=== PATIENT | female | born 1995 | race Caucasian/White ===

== ENCOUNTER 2016-11-15 19:26 | Emergency (ER) | payer OTHER ==
[~2016-11-15] VITALS: Ht 157.5 cm; Wt 70.0 kg
[2016-11-15 19:58] LABS: BASOPHIL COUNT 0.1 K/uL (0-0.1); EOSINOPHIL (%) 1.3 % (0-5); EOSINOPHIL COUNT 0.1 K/uL (0-0.3); HEMATOCRIT 37.5 % (36.0-46.0); IMMATURE GRANULOCYTE (%) 0.4 % (0.0-0.7); IMMATURE GRANULOCYTE COUNT 0.4 K/uL; MCH 30.2 PG (29.0-34.0); MCHC 34.4 G/DL (30.0-36.0); MCV 87.8 FL (83-99); MEAN PLAT.VOLUME 9.4 uM^3 (9.5-12.4); MONOCYTE COUNT 0.8 K/uL (0-0.8); NEUTROPHIL (%) 60.1 % (45-76); PLATELET COUNT 276 K/uL (156-360); RBC DIS.WIDTH-CV 12.7 % (11.8-14.6); RBC DIS.WIDTH-SD 39.6 % (39-53); RED BLOOD COUNT 4.27 M/uL (3.80-5.20)
[2016-11-15 20:08] LABS: CHLORIDE 111 mEq/L (99-109); POTASSIUM 3.7 mEq/L (3.7-5.4); SODIUM 139 mEq/L (136-147)
[2016-11-15 20:10] LABS: GLUCOSE 91 mg/dL (70-99)
[2016-11-15 20:11] LABS: ANION GAP 9 MEQ/L (2-14)
[2016-11-15 20:14] LABS: GFR ESTIMATE (CALCULATED) > 59 mL/min/
[2016-11-15 20:15] LABS: UREA NITROGEN (BUN) 11 mg/dL (9-23)
[2016-11-15 20:16] LABS: CREATINE KINASE 51 IU/L (1-294); TOTAL CK 51 IU/L (1-294)
[2016-11-15 20:22] LABS: QUANTITATIVE HCG < 4.0 MIU/ML
[2016-11-15 20:23] LABS: CK-MB 0.4 ng/mL (0.0-4.9)
[2016-11-15] MEDS ORDERED: LAMOTRIGINE100 M1 PO (22:01)
[2016-11-15] MEDS ORDERED: LEVETIRACETAM1000 MG PO (22:01)
[2016-11-15 22:02] VITALS: BP 111/72
== END 2016-11-15 22:04 | disposition home or self-care (01) ==
LOC: EME 19:26
PROVIDERS: Emergency Medicine
DX: G40.909 Epilepsy, unspecified, not intractable, without status epilepticus (principal)
CPT/HCPCS: 80048; 80175 90; 82550; 82553; 84702; 85025; 93005; 99281; 99285